=== PATIENT | female | born 1980 | race African-American/Black ===

== ENCOUNTER 2019-10-15 12:46 | Outpatient (CLI) | payer BC, SELFPAY ==
--- NOTE | ~2019-10-15 | US_ITS ---
EXAMINATION: US pelvic complete w TV DATE: 10/15/2019 13:27 INDICATION: Irregular menstruation, unspecified. TECHNIQUE: Multiple transabdominal and transvaginal sonographic images of the pelvis were obtained. COMPARISON: Pelvis MRI 09/15/2017 FINDINGS: TRANSABDOMINAL ULTRASOUND: The uterus measures 9.9 x 5.2 x 4.8 cm. There is no free fluid in the pelvis. TRANSVAGINAL ULTRASOUND: The endometrial complex measures 7 mm in thickness. There is an intrauterine device in expected posit ion. The right ovary measures 3.2 x 2.5 x 1.5 cm. The left ovary measures 4.3 x 1.9 x 2.8 cm. IMPRESSION: 1. Intrauterine device in expected position. Reviewed, dictated and finalized at location A.
== END 2019-10-15 12:47 | disposition home or self-care (01) ==
LOC: ANHIMG 12:48
PROVIDERS: PCP Family Medicine; Visit Provider Obstetrics & Gynecology
DX: N92.6 Irregular menstruation, unspecified (principal); Z97.5 Presence of (intrauterine) contraceptive device
CPT/HCPCS: 76830; 76856

== ENCOUNTER 2021-11-17 13:13 | Emergency (ER) | payer BC, SELFPAY ==
--- NOTE | ~2021-11-17 | US_ITS ---
EXAMINATION:US venous doppler LE RT INDICATION:Right lower extremity pain and swelling TECHNIQUE: Multiple grayscale, color flow and Doppler images of the right lower extremity deep venous systems were obtained and reviewed. COMPARISON:No prior studies for comparison. FINDINGS: The common femoral, superficial femoral and popliteal veins demonstrate normal respiratory variation, augmentation and compressibility. Color flow is also seen within the posterior tibial, pe roneal, greater saphenous and profunda veins. There is normal color flow, compressibility and augment ation and the left common femoral vein. IMPRESSION: 1: No lower extremity deep venous thrombosis. Reviewed, dictated and finalized at location B.
[2021-11-17 13:17] VITALS: BP 137/83; PULSE 93; RESP 17; TEMP 36.1; O2SAT 100
--- NOTE | 2021-11-17 14:43 | ED.LOWEXIN ---
HPI - Extremity Injury (Lower) General Chief Complaint: Extremity Injury, Lower Stated Complaint: right leg pain Time Seen by Provider: 11/17/21 14:17 Source: patient Mode of arrival: ambulatory Limitations: no limitations History of Present Illness HPI Narrative: Patient complaining of pain and lumps at the right lower leg since beginning of September 2021 was seen by her family physician few times with different medication without any improvement. Patient was a scheduled to see a breakdown worker today, and her appointment was canceled and scheduled for next month. Patient got mad and was told by the dermatology office to go to the emergency room if she is in pain. Nothing today is different than yesterday or 1 week or 2 weeks ago. She denies any fever, chills, nausea, vomiting. Also denies any trauma. Patient had negative venous Doppler right lower extremity 5 weeks ago Related Data Home Medications Medication Instructions Recorded Confirmed levonorgestrel 20 mcg/24 hours (7 1 device INTRAUTERINE ONCE 08/25/20 10/08/20 yrs) 52 mg intrauterine device valsartan 40 mg tablet 40 mg PO BID 08/25/20 10/08/20 ferrous sulfate 325 mg (65 mg 325 mg PO DAILY 10/07/20 10/08/20 iron) tablet vitamin B complex 1 tablet PO DAILY 10/07/20 10/08/20 Allergies Allergy/AdvReac Type Severity Reaction Status Date / Time clarithromycin Allergy Unknown Swelling Verified 11/17/21 13:52 Penicillins Allergy Unknown Swelling Verified 11/17/21 13:52 Review of Systems Review of Systems: All systems reviewed & are unremarkable except as noted in HPI and below PMFSH Past Medical History Medical History Hypertension Surgical History Surgical History H/O ovarian cystectomy Family History Family History Mother Diabetes mellitus Hypertension Cerebrovascular accident Father Hypertension Social History Social History Smoking status: Never smoker Second hand tobacco smoke exposure: No Alcohol intake: current Exam Narrative: General appearance: Well-developed, well-nourished Skin: Normal color. Head: Normocephalic, nontraumatic Eyes: Clear conjunctiva ENT: Oropharynx normal, ears normal, nose normal Neck: Supple, nontender Chest and respiratory: Airway patent, no respiratory distress, no accessory muscle use Heart: Regular rate/rhythm Abdomen: Soft, nontender, no organomegaly, quiet bowel sounds Vascular: Normal peripheral pulses, normal capillary refill. Musculoskeletal: Normal range of motion, nontender back right lower leg below the knee slightly bigger than the left 1, few tender bumps at the front and back of the right leg distally, average 4 x 4 mm ,up to 8 x 8 mm, no warmth, no erythema, no discharge or open skin, severely tender. This bumps are soft and severely tender, looks like expanded varicose veins Neurologic: Alert and oriented ?3, MERCHANDISING MANAGER is normal as tested, no gross motor deficit Course Vital Signs Vital signs: Vital Signs Temperature 36.1 C L 11/17/21 13:17 Pulse Rate 93 11/17/21 13:17 Respiratory Rate 17 11/17/21 13:17 Blood Pressure 137/83 11/17/21 13:17 Pulse Oximetry 100 11/17/21 13:17 Temperature 36.1 C L 11/17/21 13:17 Pulse Rate 93 11/17/21 13:17 Respiratory Rate 17 11/17/21 13:17 Blood Pressure 137/83 11/17/21 13:17 Pulse Oximetry 100 11/17/21 13:17 MDM - Extremity Injury (Lower) Imaging Data Radiologist's impression: Impressions Venous Doppler Study 11/17/21 15:24 IMP
== END 2021-11-17 16:15 | disposition home or self-care (01) ==
PROVIDERS: Emergency Provider Emergency Medicine
DX: L52 Erythema nodosum (principal); I10 Essential (primary) hypertension
CPT/HCPCS: 93971; 99284

== ENCOUNTER 2022-06-12 14:32 | Outpatient (CLI) | payer BC, SELFPAY ==
--- NOTE | 2022-06-12 15:08 | ECG_ITS ---
Measurements Intervals [place] Rate: 71 P: -2 CT: 168 QRS: 48 QRSD: 86 T: 14 QT: 349 QTc: 381 Interpretive Statements SINUS RHYTHM NO PREVIOUS ECG AVAILABLE FOR COMPARISON Electronically Signed On 06-13-2022 16:16:01 AGRICULTURAL AND FORESTRY SUPERVISOR by Justin Luong M.D.
[2022-06-12 15:52] LABS: Basophils Absolute Auto 0.1 K/mm3 (0.0-0.1); Basophils Percent Auto 0.7 % (0.2-1.2); Eosinophils Absolute Auto 0.1 K/mm3 (0-0.3); Eosinophils Percent Auto 1.6 % (0-4.4); Hematocrit 36.7 % (37.0-47.0); Hemoglobin 11.6 g/dL (12.0-15.0); Immature Granulocyte Absolute 0.01 K/mm3 (0.00-0.031); Immature Granulocyte Percent A 0.1 % (0-0.5); Lymphocytes Absolute Auto 3.95 K/mm3 (0.9-3.2); Lymphocytes Percent Auto 57.3 % (18.3-44.2); Mean Corpuscular HGB Conc 31.6 g/dl (32-36); Mean Corpuscular Hemoglobin 26.5 pg (26-34); Mean Corpuscular Volume 83.8 fl (80-100); Mean Platelet Volume 10.4 fl (7.4-10.4); Monocytes Absolute Auto 0.3 K/mm3 (0.1-0.6); Monocytes Percent Auto 3.6 % (2.6-8.5); Neutrophils Absolute Auto 2.5 K/mm3 (1.3-6.7); Neutrophils Percent Auto 36.7 % (45.5-73.1); Platelet Count Result 378 k/mm3 (150-375); Red Blood Count 4.38 M/mm3 (4.2-5.4); Red Cell Distribution Width 16.5 % (11.5-14.5); White Blood Count 6.9 K/mm3 (4.5-10.0)
[2022-06-12 16:06] LABS: Alanine Aminotransferase 25 U/L (6-35); Albumin Level 4.7 g/dL (3.5-5.1); Alkaline Phosphatase 80 U/L (38-126); Anion Gap 7 mmol/L (8-16); Aspartate Amino Transferase 29 U/L (14-36); Bilirubin,Total 0.2 mg/dL (0.2-1.3); Blood Urea Nitrogen 16 mg/dL (7-17); Calcium 9.1 mg/dL (8.4-10.2); Carbon Dioxide 30 mmol/L (22-30); Chloride 101 mmol/L (98-107); Estimated Glomerular Filt Rate > 60; Glucose 85 mg/dL (65-110); Potassium 3.8 mmol/L (3.4-5.0); Sodium 138 mmol/L (137-145)
[2022-06-12 16:17] LABS: INR 1.1; Partial Thromboplastin Time 28.3 SECONDS (22.3-36.8); Prothrombin Time 13.9 Seconds (11.1-14.7)
== END 2022-06-12 14:33 | disposition home or self-care (01) ==
PROVIDERS: PCP Family Medicine; Visit Provider Urology
DX: N81.4 Uterovaginal prolapse, unspecified (principal); Z01.818 Encounter for other preprocedural examination
CPT/HCPCS: 36415; 80053; 85025; 85610; 85730; 86850; 86900; 86901; 87086; 93005

== ENCOUNTER 2022-06-19 02:18 | Day surgery (SDC) | payer BC, SELFPAY ==
--- NOTE | 2022-06-11 17:03 | PM.IMHP ---
H&P: HPI History of Present Illness Date/Time: 06/11/22 17:03 Chief Complaint: POP Narrative: POP no RIANA no Hyst Review of Systems Review of Systems: All systems reviewed & are unremarkable except as noted in HPI and below PMFSH Past Medical History Medical History Hypertension Surgical History Surgical History H/O ovarian cystectomy History of carpal tunnel surgery of left wrist S/P gastric sleeve procedure Family History Family History Mother Diabetes mellitus Hypertension Cerebrovascular accident Father Hypertension Social History Social History Smoking status: Never smoker Second hand tobacco smoke exposure: No Alcohol intake: current Meds Home Medications and Allergies Home Medications Medication Instructions Recorded Confirmed Type levonorgestrel 20 mcg/24 hours (8 1 device intrauterine ONCE 08/25/20 05/31/22 History yrs) 52 mg intrauterine device (Mirena) ferrous sulfate 325 mg (65 mg 325 mg PO DAILY 10/07/20 05/31/22 History iron) tablet vitamin B complex (B 1 tablet PO DAILY 10/07/20 05/31/22 History Complex-Vitamin B12 tablet) multivitamin 1 tablet PO DAILY 02/06/22 05/31/22 History Allergies Allergy/AdvReac Type Severity Reaction Status Date / Time clarithromycin Allergy Unknown Swelling Verified 05/22/22 15:31 Penicillins Allergy Unknown Swelling Verified 05/22/22 15:31 Exam Narrative: apex at +1 Assessment and Plan Assessment and plan (1) Uterine prolapse without vaginal wall prolapse: Code(s): N81.4 - Uterovaginal prolapse, unspecified Status: Acute Assessment and Plan: robotic sacral colpopexy
[2022-06-12 14:45] VITALS: BMI 33.5
--- NOTE | 2022-06-12 14:52 | PC.NURSE ---
Report to the Outpatient Waiting Room, entrance under the green pavilion located off [facility], at time __10:00AM on date __06/19/22 . Planned Procedure Time: __12:00PM . Time changes happen often and if your time is changed the preop area will call you the afternoon before. - You and your visitor will be asked to self-screen and do not enter if you have any COVID symptoms. - Only one visitor is requested with a max of two and NO children visitors are allowed at this time. - The patient visitor may be requested to leave or wait in car when not with patient due to distancing restrictions. - A mask is optional within the hospital. Patients may have clear liquids (water, carbonated beverages, clear teas, apple juice) until 3 hours prior to surgery with a maximum of 20 ounces. - No food from midnight until time of surgery Take the following medications with a SIP of water the morning of surgery: ___NONE Medications to discontinue per physician ____HOLD ALL VITAMINS/SUPPLEMENTS 3 DAYS PRE-OP Date to take last dose____06/15/22 Please no make-up, nail latvian, hairspray, perfume, deodorant, or body powder the day of surgery. No jewelry (including any body piercings) or valuables the day of surgery, leave them at home. Please take a shower or bath the night before, or the morning of, surgery with an antibacterial soap. Wear comfortable, loose fitting clothing. Children are encouraged to wear pajamas. - Jewelry must be removed prior to entering the operating room. Rings and piercings that are not removed may be cut off. - The hospital will not accept responsibility for valuables. - Please leave all valuables, including medications, at home the day of surgery. If you are going home after surgery, a licensed automobile drivers must drive you home. - NO public transportation without another adult if you receive anesthesia. - We recommend that an adult stay with you for 24 hours following discharge. - We also recommend that you do not drive, make important decision, drink alcoholic beverages, or take any drugs that were not prescribed by your health care provider for at least 24 hours after your discharge time. Follow any additional instructions given to you from your surgeon. If you or anyone in your household have experienced Covid symptoms in the past week, please notify your surgeon or the nurse liaison at the phone number below for possible testing. Telephone instructions given to __PATIENT and asked if any additional questions and then verbalized understanding. Patient advised to call surgeon office or pre surgery nurse liaison [phone] if any additional questions.
[2022-06-19] VITALS (11 sets, daily range): BP systolic 101–144; BP diastolic 49–89; PULSE 59–654; RESP 10–20; TEMP 36.2–36.9; O2SAT 100
--- NOTE | 2022-06-19 07:10 | WPDHPUPDATE1 ---
History and Physical Update Update Date/Time: 06/19/22 07:10 History and Physical has been reviewed, including an updated exam of the patient. There are NO changes in the patient's condition. Risks, benefits, and alternatives have been discussed and questions answered. Patient agrees to proceed with procedure.
[2022-06-19] MEDS: ACETAMINOPHEN 500 MG TABLET 1000 MG PO (10:21)
--- NOTE | 2022-06-19 10:39 | PM.IMHP ---
H&P: HPI History of Present Illness Date/Time: 06/19/22 10:39 Chief Complaint: vaginal pressure Narrative: Patient with satisfied parity with history of uterine prolapse which is getting worse. She does Kegel exercises and no relief. Declines pessary. Discussed options. She has been evaluated by Dr. Randall. She is desiring sacralcolpopexy. Currently using Mirena IUD. She has satisfied parity. She is aware hysterectomy will render her sterile which she is fine with this. Discussed risk benefit of robotic supracervical hysterectomy. She has no menopausal symptoms. Review of Systems Review of Systems: All systems reviewed & are unremarkable except as noted in HPI and below Constitutional: Constitutional: Reports no additional constitutional complaints Eyes: Eyes: Reports no additional eye complaints Cardiovascular: Cardiovascular: Reports no additional cardiovascular complaints Respiratory: Respiratory: Reports no additional respiratory complaints Gastrointestinal: Gastrointestinal: Reports no additional gastrointestinal complaints Genitourinary: Genitourinary: Reports no additional female genitourinary complaints and Reports as per HPI Integumentary/Breasts: Skin/Breast: Reports system reviewed and no additional complaints, except as docu Neurologic: Reports system reviewed and no additional complaints, except as documented Psychiatric: Psychiatric: Reports no additional psychiatric complaints Hematologic/Lymphatic: Hematologic/Lymphatic: Reports no additional hematologic/lymphatic complaints PMF Past Medical History Medical History Hypertension Surgical History Surgical History H/O ovarian cystectomy History of carpal tunnel surgery of left wrist S/P gastric sleeve procedure Family History Family History Mother Diabetes mellitus Hypertension Cerebrovascular accident Father Hypertension Social History Social History Smoking status: Never smoker Second hand tobacco smoke exposure: No Alcohol intake: current Substance use: never Living arrangements: with family Additional living arrangements comments: CHILDREN Spiritual care concerns: No Meds Home Medications and Allergies Home Medications Medication Instructions Recorded Confirmed Type levonorgestrel 20 mcg/24 hours (8 1 device intrauterine ONCE 08/25/20 06/12/22 History yrs) 52 mg intrauterine device (Mirena) vitamin B complex (B 1 tablet PO DAILY 04/08/21 12/19/22 History Complex-Vitamin B12 tablet) multivitamin 1 tablet PO DAILY 02/06/22 06/19/22 History Allergies Allergy/AdvReac Type Severity Reaction Status Date / Time clarithromycin Allergy Unknown Swelling Verified 06/19/22 10:20 Penicillins Allergy Unknown Swelling Verified 06/19/22 10:20 Exam Const: General: comfortable and no acute distress Orientation/consciousness: oriented to person, oriented to place and oriented to time Eyes: General: appearance normal, both eyes and all related structures Neck: Neck: normal visual inspection Resp: Effort & Inspection: normal respiratory effort Auscultation: clear to auscultation bilaterally Cardio: Rate: regular rate Rhythm: regular rhythm GI: Inspection: normal to inspection GI Palp: No abdominal tenderness and Yes No hepatosplenomegaly present : External Female Exam: normal external appearance Speculum Exam - Vagina: normal appearance of the vagina Speculum Exam - Cervix: normal appearance of the cervix and Other cervical findings present (cervix descends to introitus) Bimanual exam- vagina & uterus: normal bimanual exam, uterine mobility normal, uterine shape normal and non-tender Bimanual Exam- Adnexa, other: no masses, No adnexal tenderness and vaginal apex descent
--- NOTE | 2022-06-19 10:49 | P.PNAN_ITS ---
Anes - Initial Pre Proc Eval Procedure: Operation Date: 06/19/22 12:00 Proposed Procedures p Robotic Sacrocolpopexy, Possible Urethral Sling - Obey Randall MD s Robotic Assisted Supracervical Total Hysterectomy With Bilateral Salpingectomy - Maury Lance MD Date/Time: 06/19/22 10:49 Surgeon: Obey Randall MD Pre Op Diagnosis: incomplete uterovaginal prolapse Patient Data Age: 41 Gender: F Height: 1.68 m Weight: 94.2 kg Allergies Allergy/AdvReac Type Severity Reaction Status Date / Time clarithromycin Allergy Unknown Swelling Verified 06/19/22 10:20 Penicillins Allergy Unknown Swelling Verified 06/19/22 10:20 Home Medications Medication Instructions Recorded Confirmed Type levonorgestrel 20 mcg/24 hours (8 1 device intrauterine ONCE 08/25/20 06/12/22 History yrs) 52 mg intrauterine device (Mirena) vitamin B complex (B 1 tablet PO DAILY 10/07/20 06/19/22 History Complex-Vitamin B12 tablet) multivitamin 1 tablet PO DAILY 02/06/22 06/19/22 History Patient hx anesthesia problems: none Family hx anesthesia problems: none Results Review: All pre-operative results and documents have been reviewed as part of the pre- operative evaluation. [facility] Past Medical History Medical History Hypertension Surgical History Surgical History H/O ovarian cystectomy History of carpal tunnel surgery of left wrist S/P gastric sleeve procedure Family History Family History Mother Diabetes mellitus Hypertension Cerebrovascular accident Father Hypertension Social History Social History Smoking status: Never smoker Second hand tobacco smoke exposure: No Alcohol intake: current Substance use: never Living arrangements: with family Additional living arrangements comments: CHILDREN Spiritual care concerns: No Anes - Eval Final PreProcedure Day of Procedure 06/19/22 10:49 Patient weight: overweight Heart: regular rate and rhythm Lungs: clear to auscultation Airway: Mallampati scale class 1 Neurological: alert and oriented Last oral intake: >/= 8 hours ASA classification: II Emergent: no Anesthetic plan: proceed Anesthesia type and monitoring: general ETT and standard monitoring Results Review: All pre-operative results and documents have been reviewed as part of the pre- operative evaluation. Informed Consent: The patient's anesthetic plan and its attendant risks and benefits were discussed with the patient/family/POA. Questions were solicited and answers provided to the satisfaction of the patient/family/POA.
--- NOTE | 2022-06-19 10:59 | WPDHPUPDATE1 ---
History and Physical Update Update Date/Time: 06/19/22 10:59 History and Physical has been reviewed, including an updated exam of the patient. There are NO changes in the patient's condition. Discussed possibility of needing to remove one or both ovaries if deemed necessary. She agrees. Risks, benefits, and alternatives have been discussed and questions answered. Patient agrees to proceed with procedure.
[2022-06-19] MEDS: LACTATED RINGERS 1,000 ML 30 ML IV CONT ×2 (11:17→15:25)
[2022-06-19] MEDS: KETOROLAC 15 MG/ML VIAL (*BKC) IV PUSH (11:17)
[2022-06-19] MEDS: ceFAZolin 2 GM/D5W 50 ML 2 GM/50 ML BAG IVPB (11:26)
[2022-06-19] MEDS: metroNIDAZOLE 500 MG/ISO 100ML 500 MG/100 ML BAG 100 MG IVPB (11:46)
--- NOTE | 2022-06-19 13:40 | W.PM.PROC2 ---
Procedure Note - Detailed Date of Procedure 06/19/22 Pre-op Diagnosis incomplete uterovaginal prolapse Post-op Diagnosis Same Procedure Performed robotic assisted supracervical hysterectomy bilateral salpingectomy. Left ovarian cystectomy. Surgeon Maury Lance MD Windows Security Analyst Jose Anesthesia General Indications patient was symptomatic incomplete uterovaginal prolapse. Findings Small fibroid subserosal noted on the anterior uterus. The fallopian tubes normal. There was a cyst on the left ovary. Right ovary normal. Description of Procedure After informed consent was obtained she was taken to the operating room and general endotracheal anesthesia was administered. ? She was placed in low lithotomy position. Dr. Randall started the procedure with placement of robotic ports. Attention was turned to the vagina speculum was inserted.? Single-tooth tenaculum placed on anterior lip of the cervix.? An acorn uterine manipulator was inserted into cervical canal. Once the robotic arms were attached then attention was turn to surgery console. The right round ligament was ligated with the vessel sealer. The anterior leaf of the right broad ligament was dissected anteriorly. The right side of the bladder was dissected from the lower uterine segment and the upper cervix .? The right Fallopian tube ligated with vessel sealer? from the broad ligament. The right ovarian ligament was ligated with the vessel sealer. The posterior broad ligament was further ligated. ? The ascending uterine vessels on the right were cauterized.? ? The uterine vessels were ligated.? Attention was turned to the left? round ligament. The left round ligament was ligated with the vessel sealer. The anterior leaf of the broad ligament was dissected anteriorly. The bladder was dissected off the lower uterine segment of the uterus. Attention was turned to the left fallopian tube which was ligated from the broad ligament. The left ovarian ligament was ligated. The ascending uterine vessels were cauterized and ligated with the vessel sealer. The posterior leaf of the broad ligament was further dissected. The uterine arteries were cauterized. The uterus was bivalved since the size of it in total would not fit in to the Endo-Catch bag. The? bivalved uterus was placed in Endocatch bagx 2. The cervical stump was inspected hemostasis noted with cautery. There was a cyst on the right ovary which had some bleeding. The cyst martinez was excised and will be sent for pathology. And hemostasis was obtained at the site with cautery. The rest of the ovary appeared normal.The pelvis was hemostatic. Dr. Randall then started his procedure. Patient tolerated procedure well. Drains No Packing No Pathology Yes ( Uterus and right and left fallopian tube and left ovarian cyst wall.) Complications No immediate complications Condition Stable Disposition No change [facility] Billing Surgery - Charge Forward: Surgery Billing
--- NOTE | 2022-06-19 15:53 | W.PM.PROC2 ---
Procedure Note - Detailed Date of Procedure 06/19/22 Pre-op Diagnosis incomplete uterovaginal prolapse Post-op Diagnosis Same Procedure Performed Robotic assisted laparoscopic sacral colpopexy Cystoscopy Surgeon Obey Randall MD Anesthesia General Indications this is a young woman with uterine prolapse as well as stress incontinence. She desires surgical correction. She is here for the above. She understands risks of bleeding, infection, diskitis, damage to surrounding organs, bowel injury, bowel obstruction, mesh related complications including exposure and extrusion, postoperative voiding dysfunction including incontinence and retention, need for ancillary procedures, dyspareunia, recurrence of prolapse, denovo stress urinary incontinence, and other perioperative intraoperative postoperative complications. She agrees to proceed. Findings See below Description of Procedure She was correctly identified. Informed consent obtained. She from the operating room. She was given general anesthesia. She was given appropriate perioperative antibiotics. She was placed a low lithotomy position. Pressure points were padded. A time-out performed. I marked out the skin 3 fingerbreadths cephalad to the umbilicus. I anesthetized the skin. I incised the skin. I dissected down to the fascia. I grasped the fascia with Tyson clamps. I entered the fascia sharply in a Urias type technique. I placed sutures for later fascial closure. I placed a midline trocar. I examined the abdomen. There is no sign of any injury. Under direct vision I placed 2 additional trocars in the right upper quadrant and 2 additional trocars the left upper quadrant. She was placed in steep Trendelenburg. The robot was docked. Her parcel contractor completed their portion of the procedure. Please see that operative report for details. I then sat at the console. The Sizer in the vagina created plane on the anterior and posterior vaginal wall. I took great care not to injure the vagina, bladder, or rectum. she had a very large bulky cervix which was quite asymmetric. This made this portion of the procedure somewhat difficult a in terms of retraction. I placed a Sizer in both the vagina and rectum in order to delineate the anatomy. There is no sign of any vaginal or rectal injury. I also did examine The patient at the bedside to confirm the dissection was in the appropriate planes. She also had significant fatty tissues in the deep pelvis around the rectum and vagina.I introduced the mesh into the abdomen. I sewed the anterior leaflet of mesh on the anterior vaginal wall. I sewed the posterior leaflet of mesh on the posterior vaginal wall. This was done with several sutures of 2 0 [place]-Vasile. I reflected the colon laterally. I opened the posterior peritoneum over the sacral promontory. I carried this into the cul-de-sac. I freed up the edges for later retroperitonealization. I located the anterior longitudinal ligament the sacrum. I cleaned off all fatty tissues. I then tensioned my mesh appropriately. I did a vaginal exam the bedside. I assured prolapse reduction without undue tension. I then sewed the proximal leaflet of mesh onto the anterior longitudinal ligament of the sacrum with several sutures of 2 0 [place]-Vasile. I then used a 2 0 Monocryl to completely and meticulously retroperitonealized all mesh. I allowed the colon to go back to its normal anatomic location. There is no sign of any impingement. The specimen was then removed. All ports removed. Fascia was tied down. Skin was closed with Monocryl and surgical glue. She was repositioned and prepped for urethral sling. there was excellent support of her prolapse. The cervix was now at the apex. There is no significant cystocele or rectocele I then performed cystoscopy. There was no tumors or surgical artifact. bilateral ureteral patency was documented by seeing clear urine and passing guidewires u
[2022-06-19] MEDS: MEPERIDINE HCL INJ (*CRX) 50 MG/ML AMPUL 25 MG IV PUSH (16:08)
== END 2022-06-19 18:03 | disposition home or self-care (01) ==
PROVIDERS: Obstetrics & Gynecology; PCP Family Medicine; Visit Provider Urology
PROC: (CPT 57425; principal; 2022-06-19 12:00)
PROC: 0UT94ZZ Resection of Uterus, Percutaneous Endoscopic Approach (ICD-10-PCS; CPT 57425; 2022-06-19 12:00)
DX: N81.2 Incomplete uterovaginal prolapse (principal); N83.12 Corpus luteum cyst of left ovary; D25.2 Subserosal leiomyoma of uterus; Z98.84 Bariatric surgery status
CPT/HCPCS: 57425; 58542; S2900 ×2; 88305; 88307; A9270; C1781; C9290; J0690; J1100; J1170; J1885; J2175; J2250; J2405; J2704; J2710; J7030; J7120

== ENCOUNTER 2023-09-24 00:57 | Day surgery (SDC) | payer BC, SELFPAY ==
[2023-09-13 15:42] VITALS: BMI 33.9
--- NOTE | 2023-09-21 08:39 | SUR.PREOP ---
Patient called regarding upcoming procedure. Reviewed preop instructions, appointment times, and procedure prep.
[2023-09-24 09:10] VITALS: BP 128/79; PULSE 77; RESP 16; TEMP 36.2; O2SAT 100; BMI 32.7
[2023-09-24] MEDS: LACTATED RINGERS 1,000 ML 150 ML IV CONT (09:34)
--- NOTE | 2023-09-24 09:48 | WPDANESEPPF ---
Anes - Initial Pre Proc Eval Procedure: Operation Date: 09/24/23 10:30 Proposed Procedures p Screening Colonoscopy - Jovan Sauceda MD Date/Time: 09/24/23 09:48 Surgeon: Jovan Sauceda MD Pre Op Diagnosis: neoplasm screening Patient Data Age: 43 Gender: F Height: 1.68 m Weight: 91.9 kg Last Vital Signs Temp 97.1 F L 09/24/23 09:10 Pulse 77 09/24/23 09:10 Resp 16 09/24/23 09:10 BP 128/79 09/24/23 09:10 Pulse Ox 100 09/24/23 09:10 O2 Del Method Room Air 09/24/23 09:10 Allergies Allergy/AdvReac Type Severity Reaction Status Date / Time clarithromycin Allergy Severe Swelling Verified 09/24/23 09:22 Penicillins Allergy Severe Swelling Verified 09/24/23 09:22 Home Medications Medication Instructions Recorded Confirmed Type multivitamin 1 tablet PO DAILY 02/06/22 09/24/23 History drospirenone (contraceptive) 4 mg 1 tablet PO DAILY #84 tabs 05/02/23 09/24/23 Rx (28) tablet (Slynd) calcium carbonate 600 mg calcium 600 mg PO TID 05/08/23 09/24/23 History (1,500 mg) tablet (Calcium) cholecalciferol (vitamin D3) 50 50 mcg PO DAILY 05/08/23 09/24/23 History mcg (2,000 unit) capsule ascorbic acid (vitamin C) 500 mg 500 mg PO DAILY 09/13/23 09/24/23 History tablet docusate sodium 100 mg capsule 100 mg PO HS 09/13/23 09/24/23 History (Colace) ferrous sulfate 143 mg (45 mg 143 mg PO HS 09/13/23 09/24/23 History iron) tablet,extended release mecobalamin (vitamin B12) 1,000 1,000 mcg PO DAILY 09/13/23 09/24/23 History mcg chewable tablet Patient hx anesthesia problems: none Family hx anesthesia problems: none Results Review: All pre-operative results and documents have been reviewed as part of the pre-operative evaluation. [facility] Past Medical History Medical History Hypertension RIANA (stress urinary incontinence, female) Surgical History Surgical History H/O ovarian cystectomy (~06/19/22) same time as hyst History of carpal tunnel surgery of left wrist History of hysterectomy, supracervical (~06/19/22) RA Supracervical hyst with BS, left ovarian cystectomy. Path benign. Dr Natalio Randall performed a sacral colpopexy at same time. (RIANA and uterovaginal prolapse/fibroids) History of sacrocolpopexy (~06/19/22) same time as Hyst. Dr Randall S/P gastric sleeve procedure Family History Family History Mother Diabetes mellitus Hypertension Cerebrovascular accident Father Hypertension Social History Social History Smoking status: Never smoker Second hand tobacco smoke exposure: No Alcohol intake: current Substance use: never Substance use type: does not use Lack of Transportation: No Current Housing: I Have Housing Concerned About Future Housing: No Difficulty Paying Gas/Electric Bills: No Difficulty Paying for Meds: No Currently Unemployed: No Education: Master's Degree or Higher Living arrangements: with family Additional living arrangements comments: CHILDREN Occupation/Education: occupation Gender identity (if verbalized by the patient): Female Sexual Orientation (if Verbalized by the Patient): Straight or Heterosexual Spiritual care concerns: No Anes - Eval Final PreProcedure Day of Procedure 09/24/23 09:48 Patient weight: normal Heart: regular rate and rhythm Lungs: clear to auscultation Airway: Mallampati scale class II Neurological: alert and oriented Last oral intake: >/= 8 hours ASA classification: II Emergent: no Anesthetic plan: proceed Anesthesia type and monitoring: general GIVS and standard monitoring Results Review: All pre-operative results and documents have been reviewed as part of the pre-operative evaluation. Informed Consent: The
--- NOTE | 2023-09-24 10:09 | PM.HPGS ---
History of Present Illness History of Present Illness Consent: Risks, benefits, and alternatives have been discussed and questions answered. Patient agrees to proceed with procedure. Chief complaint: neoplasm screening Narrative: Gt Raman is a 43 year old female here for screening colonoscopy Review of Systems Review of Systems: All systems reviewed & are unremarkable except as noted in HPI and below PMFSH Past Medical History Medical History (Updated 09/24/23 @ 10:10 by Jovan Sauceda MD) Colon cancer screening Hypertension RIANA (stress urinary incontinence, female) Surgical History Surgical History H/O ovarian cystectomy (~06/19/22) same time as hyst History of carpal tunnel surgery of left wrist History of hysterectomy, supracervical (~06/19/22) RA Supracervical hyst with BS, left ovarian cystectomy. Path benign. Dr Natalio Randall performed a sacral colpopexy at same time. (RIANA and uterovaginal prolapse/fibroids) History of sacrocolpopexy (~06/19/22) same time as Hyst. Dr Randall S/P gastric sleeve procedure Family History Family History Mother Diabetes mellitus Hypertension Cerebrovascular accident Father Hypertension Social History Social History Smoking status: Never smoker Second hand tobacco smoke exposure: No Alcohol intake: current Substance use: never Substance use type: does not use Lack of Transportation: No Current Housing: I Have Housing Concerned About Future Housing: No Difficulty Paying Gas/Electric Bills: No Difficulty Paying for Meds: No Currently Unemployed: No Education: Master's Degree or Higher Living arrangements: with family Additional living arrangements comments: CHILDREN Occupation/Education: occupation Gender identity (if verbalized by the patient): Female Sexual Orientation (if Verbalized by the Patient): Straight or Heterosexual Spiritual care concerns: No Meds Home Medications and Allergies Home Medications Medication Instructions Recorded Confirmed Type multivitamin 1 tablet PO DAILY 02/06/22 09/24/23 History drospirenone (contraceptive) 4 mg 1 tablet PO DAILY #84 tabs 05/02/23 09/24/23 Rx (28) tablet (Slynd) calcium carbonate 600 mg calcium 600 mg PO TID 05/08/23 09/24/23 History (1,500 mg) tablet (Calcium) cholecalciferol (vitamin D3) 50 50 mcg PO DAILY 05/08/23 09/24/23 History mcg (2,000 unit) capsule ascorbic acid (vitamin C) 500 mg 500 mg PO DAILY 09/13/23 09/24/23 History tablet docusate sodium 100 mg capsule 100 mg PO HS 09/13/23 09/24/23 History (Colace) ferrous sulfate 143 mg (45 mg 143 mg PO HS 09/13/23 09/24/23 History iron) tablet,extended release mecobalamin (vitamin B12) 1,000 1,000 mcg PO DAILY 09/13/23 09/24/23 History mcg chewable tablet Allergies Allergy/AdvReac Type Severity Reaction Status Date / Time clarithromycin Allergy Severe Swelling Verified 09/24/23 09:22 Penicillins Allergy Severe Swelling Verified 09/24/23 09:22 Vital Signs Vital Signs - 24 hr 09/24/23 09:10 Temperature 97.1 F L Pulse Rate 77 Respiratory Rate 16 Blood Pressure 128/79 Pulse Oximetry 100 Oxygen Delivery Room Air Exam Const: General: comfortable and no acute distress HENMT: Face/Nose/Sinus: Normal nares present Eyes: General: appearance normal, both eyes and all related structures Neck: Neck: no JVD Resp: Auscultation: clear to auscultation bilaterally Cardio: Rate: regular rate Rhythm: regular rhythm GI: Inspection: non-distended GI Palp: Yes Soft to palpation Skin: General skin exam: normal color Neuro: General: gait normal Speech: normal speech Extrem: General: normal to inspection Psych: Mental Status: mental status grossly normal Assessment and Plan Assess
[2023-09-24 10:30] VITALS: BP 108/63; PULSE 80; RESP 26; O2SAT 100
[2023-09-24 10:40] VITALS: BP 110/52; PULSE 76; RESP 21; O2SAT 100
[2023-09-24 10:50] VITALS: BP 110/79; PULSE 73; RESP 16; O2SAT 100
== END 2023-09-24 11:24 | disposition home or self-care (01) ==
PROVIDERS: PCP Family Medicine; Visit Provider Internal Medicine Gastroenterology
PROC: 0DJD8ZZ Inspection of Lower Intestinal Tract, Via Natural or Artificial Opening Endoscopic (ICD-10-PCS; CPT 45378; principal; 2023-09-24 10:30)
DX: Z12.11 Encounter for screening for malignant neoplasm of colon (principal); K64.8 Other hemorrhoids; I10 Essential (primary) hypertension; N39.3 Stress incontinence (female) (male); Z98.890 Other specified postprocedural states; Z98.84 Bariatric surgery status; Z82.49 Family history of ischemic heart disease and other diseases of the circulatory system
CPT/HCPCS: 45378; J2704; J7120